=== PATIENT | male | born 1955 | race Caucasian/White ===

== ENCOUNTER 2019-10-19 12:38 | Emergency (ER) | payer MEDICARE, BC ==
[2019-10-19 13:40] VITALS: BP 168/104; PULSE 73
[2019-10-19] MEDS ORDERED: Sodium Chloride 0.9% 10 ML Syringe FLUSH PRN (14:21)
[2019-10-19] MEDS ORDERED: methylPREDNISolone Sodium Succinate 125 MG/2 ML SDV IVPUSH ONE (14:22)
[2019-10-19] MEDS ORDERED: Albuterol/Ipratropium 3.0-0.5 MG/3 ML Neb Soln NEB ONE (14:23)
--- NOTE | 2019-10-19 14:26 | EDM.PDOC ---
ED HPI GENERAL MEDICAL PROBLEM - General Chief Complaint: Respiratory Problem Stated Complaint: SOB,COUGH Time Seen by Provider: 10/19/19 14:24 Source of Information: Reports: Patient History Limitations: Reports: No Limitations - History of Present Illness INITIAL COMMENTS - FREE TEXT/NARRATIVE: pt arrived very tight and almost continuously coughing. He was seen at the clinic and he was placed on predisone and zithromax. He got some better and now he is very tight again. Onset: Gradual Duration: Day(s): Location: Reports: Chest, Generalized Associated Symptoms: Reports: Cough, Shortness of Breath - Related Data Allergies Allergy/AdvReac Type Severity Reaction Status Date / Time No Known Allergies Allergy Verified 10/19/19 13:30 Home Meds: Home Meds Multivitamin [Multivitamins] 1 cap PO BID 09/09/13 [History] hydroCHLOROthiazide [Hydrochlorothiazide] 12.5 mg PO DAILY 09/09/13 [History] Albuterol [Proair HFA] 2 puff INH Q6H PRN 07/08/16 [History] Metoprolol Tartrate 1 tab PO BID 07/08/16 [History] Albuterol Sulfate 1 inh INH Q4H PRN 08/22/16 [History] Budesonide/Formoterol [Symbicort 160-4.5 MCG] 2 puff PO BID 10/19/19 [History] Past Medical History HEENT History: Reports: Impaired Vision Cardiovascular History: Reports: Hypertension Respiratory History: Reports: Asthma Gastrointestinal History: Reports: GERD Neurological History: Reports: Concussion Psychiatric History: Reports: Depression - Infectious Disease History Infectious Disease History: Reports: C-Difficile Other Infectious Disease History: unable to obtain - Past Surgical History Male Surgical History: Reports: Vasectomy Social & Family History - Tobacco Use Smoking Status *Q: Never Smoker - Caffeine Use Caffeine Use: Reports: Coffee - Recreational Drug Use Recreational Drug Use: No - Living Situation & Occupation Living situation: Reports: , with Spouse Occupation: Employed ED ROS GENERAL - Review of Systems Review Of Systems: See Below Constitutional: Reports: Weakness HEENT: Reports: No Symptoms Respiratory: Reports: Shortness of Breath, Wheezing, Cough Cardiovascular: Reports: No Symptoms Endocrine: Reports: No Symptoms GI/Abdominal: Reports: No Symptoms : Reports: No Symptoms Musculoskeletal: Reports: No Symptoms Skin: Reports: No Symptoms ED EXAM, GENERAL - Physical Exam Exam: See Below Free Text/Narrative:: pt arrived with a history of wheezing and increased sob. He wonders about allergies, He does have colored sputum. Exam Limited By: No Limitations General Appearance: Alert, Anxious, Moderate Distress Eye Exam: Right Eye: Vision Changes Ears: Normal TMs Nose: Normal Inspection Throat/Mouth: Normal Inspection Head: Atraumatic Neck: Normal Inspection Respiratory/Chest: Decreased Breath Sounds, Wheezing, Other ( frequent cough. ) Cardiovascular: Regular Rate, Rhythm GI/Abdominal: Soft, Non-Tender (Male) Exam: Deferred Rectal (Males) Exam: Deferred Back Exam: Normal Inspection Extremities: Normal Inspection Neurological: Alert, Oriented, Normal Cognition Psychiatric: Normal Affect Course - Vital Signs Last Recorded V/S: Last Vital Signs Temp 35.7 C L 10/19/19 13:59 Pulse 73 10/19/19 13:59 Resp 14 10/19/19 13:59 BP 168/104 H 10/19/19 13:59 Pulse Ox 94 L 10/19/19 13:59 - Orders/Labs/Meds Orders: Active Orders 24 hr Category Date Time Status RT Aerosol Therapy [RC] ASDIRECTED Care 10/19/19 14:23 Active Chest 2V [CR] Stat Exams 10/19/19 14:23 Taken Sodium Chloride 0.9% [Saline Flush] Med 10/19/19 14:21 Active 10 ml FLUSH ASDIRECTED PRN Saline Lock Insert [OM.PC] Routine Oth 10/19/19 14:21 Ordered Medication Orders Sodium Chloride (Saline Flush) 10 ml FLUSH ASDIRECTED PRN PRN Reason: Keep Vein Open Last Admin: 10/19/19 14:32 Dose: 10 ml Labs: Laboratory Tests 10/19/19 10/19/19 Range/Units 14:33 14:33 WBC 8.2 (4.5-11.0) K/uL RBC 5.33 (4.30-5.90) M/uL Hgb 16.5 H (12.0-15.0) g/dL Hct 48.1 (40.0-54.0) % MCV 90 (80-98) fL MCH 31 (27-31) pg MCHC 34 (32-36) % Plt Count 224 (150-400) K/uL Neut % (Auto) 56 (36-66) % Lymph % (Auto) 30 (24-44) % [place] % (Auto) 10 H (2-6) % Eos % (Auto) 3 (2-4) % Baso % (Auto) 1 (0-1) % Sodium 145 (140-148) mmol/L Potassium 4.1 (3.6-5.2) mmol/L Chloride 107 (100-108) mmol/L Carbon Dioxide 26 (21-32) mmol/L Anion Gap 11.6 (5.0-14.0) mmol/L BUN 19 H (7-18) mg/dL Creatinine 1.2 (0.8-1.3) mg/dL Est Cr Clr Drug Dosing 65.36 mL/min Estimated GFR (MDRD) > 60 (>60) Glucose 96 (74-106) mg/dL Calcium 8.7 (8.5-10.1) mg/dL Total Bilirubin 0.5 (0.2-1.0) mg/dL AST 28 (15-37) U/L ALT 46 (12-78) U/L Alkaline Phosphatase 68 (46-116) U/L Total Protein 7.5 (6.4-8.2) g/dL Albumin 3.9 (3.4-5.0) g/dL Globulin 3.6 H (2.3-3.5) g/dL Albumin/Globulin Ratio 1.1 L (1.2-2.2) Meds: Medications Generic Name Dose Route Start Last Admin Trade Name José Luis PRN Reason Stop Dose Admin Sodium Chloride 10 ml 10/19/19 14:21 10/19/19 14:32 Saline Flush FLUSH 10 ml ASDIRECTED PRN Administration Keep Vein Open Discontinued Medications Generic Name Dose Route Start Last Admin Trade Name Freq PRN Reason Stop Dose Admin Albuterol/Ipratropium 3 ml 10/19/19 14:23 10/19/19 14:32 Duoneb 3.0-0.5 Mg/3 Ml NEB 10/19/19 14:24 3 ml ONETIME ONE Administration Methylprednisolone Sodium Succinate 125 mg 10/19/19 14:22 10/19/19 14:31 Solu-Medrol IVPUSH 10/19/19 14:23 125 mg ONETIME ONE Administration - Re-Assessments/Exams Free Text/Narrative Re-Assessment/Exam: 10/19/19 15:24 wbc is not elevated, chest xray was unchanged. other labs looked normal. j Departure - Departure Time of Disposition: 15:17 Disposition: Home, Self-Care 01 Condition: Fair Clinical Impression: Bronchitis, Bronchospasm - Discharge Information Referrals: Demian Perez MD [Primary Care Provider] - Forms: ED Department Discharge Care Plan Goals: increase nebs to tid, zithromax 250 2 tabs now and 1 tab daily for 6day. predisone 10 mg 2 tabs daily starting tomorrow for 3 days then 1 tab daily, keep appt with Dr Clark for allergy testing. . Sepsis Event Note - Evaluation Sepsis Screening Result: No Definite Risk - Focused Exam Vital Signs: Vital Signs Temp Pulse Resp BP Pulse Ox 10/19/19 13:59 35.7 C L 73 14 168/104 H 94 L 10/19/19 13:40 35.7 C L 73 14 168/104 H 94 L Date Exam was Performed: 10/19/19 Time Exam was Performed: 15:22 - My Orders Last 24 Hours: My Active Orders 10/19/19 14:21 Sodium Chloride 0.9% [Saline Flush] 10 ml FLUSH ASDIRECTED PRN Saline Lock Insert [OM.PC] Routine 10/19/19 14:23 RT Aerosol Therapy [RC] ASDIRECTED Chest 2V [CR] Stat - Assessment/Plan Last 24 Hours: My Active Orders 10/19/19 14:21 Sodium Chloride 0.9% [Saline Flush] 10 ml FLUSH ASDIRECTED PRN Saline Lock Insert [OM.PC] Routine 10/19/19 14:23 RT Aerosol Therapy [RC] ASDIRECTED Chest 2V [CR] Stat
--- NOTE | 2019-10-21 09:03 | CR ---
CHEST: 2 view CLINICAL HISTORY:SOB COMPARISON:CT 2015 FINDINGS: The heart size, pulmonary vascular and hilar structures are normal. No infiltrate effusion or pneumothorax is seen. IMPRESSION: No acute cardiopulmonary process.
== END 2019-10-19 15:37 | disposition home or self-care (01) ==
LOC: JP.ED 12:38
DX: J45.909 Unspecified asthma, uncomplicated (principal); I10 Essential (primary) hypertension; Z79.51 Long term (current) use of inhaled steroids; Z79.899 Other long term (current) drug therapy
CPT/HCPCS: 36415; 71046; 80053; 85025; 94640; 96374; 99285; J2930; J7620-GY

== ENCOUNTER 2020-07-22 13:28 | Emergency (ER) | payer MEDICARE, BC ==
--- NOTE | 2020-07-22 15:50 | EDM.PDOC ---
ED HPI GENERAL MEDICAL PROBLEM - General Chief Complaint: Respiratory Problem Stated Complaint: COUGH, SOB Time Seen by Provider: 07/22/20 15:35 Source of Information: Reports: Patient, RN Notes Reviewed History Limitations: Reports: No Limitations - History of Present Illness INITIAL COMMENTS - FREE TEXT/NARRATIVE: 65-year-old gentleman presents emergency department today with complaint of cough, he has produced some whitish sputum no fevers he has felt feverish and on and off not really short of breath no nausea or vomiting he has been ill for 1 week's time Generalized Pain Score (Numeric/FACES): 7 - Related Data Allergies Allergy/AdvReac Type Severity Reaction Status Date / Time No Known Allergies Allergy Verified 10/19/19 13:30 Home Meds: Home Meds Multivitamin [Multivitamins] 1 cap PO BID 09/09/13 [History] hydroCHLOROthiazide [Hydrochlorothiazide] 12.5 mg PO DAILY 09/09/13 [History] Albuterol [Proair HFA] 2 puff INH Q6H PRN 07/08/16 [History] Metoprolol Tartrate 1 tab PO BID 07/08/16 [History] Albuterol Sulfate 1 inh INH Q4H PRN 08/22/16 [History] Budesonide/Formoterol [Symbicort 160-4.5 MCG] 2 puff PO BID 10/19/19 [History] Codeine/guaiFENesin [guaiFENesin-Codeine Syrup] 10 ml PO TID PRN #180 cup 07/22/20 [Rx] Past Medical History HEENT History: Reports: Impaired Vision Cardiovascular History: Reports: Hypertension Respiratory History: Reports: Asthma Gastrointestinal History: Reports: GERD Neurological History: Reports: Concussion Psychiatric History: Reports: Depression - Infectious Disease History Infectious Disease History: Reports: C-Difficile Other Infectious Disease History: unable to obtain - Past Surgical History HEENT Surgical History: Reports: Adenoidectomy, Tonsillectomy Male Surgical History: Reports: Vasectomy Social & Family History - Tobacco Use Tobacco Use Status *Q: Never Tobacco User - Caffeine Use Caffeine Use: Reports: None - Recreational Drug Use Recreational Drug Use: No - Living Situation & Occupation Living situation: Reports: , with Spouse Occupation: Employed ED ROS GENERAL - Review of Systems Review Of Systems: See Below Constitutional: Reports: Fever (Feverish) HEENT: Reports: No Symptoms Respiratory: Reports: Cough, Sputum. Denies: Shortness of Breath Cardiovascular: Reports: No Symptoms GI/Abdominal: Reports: No Symptoms ED EXAM, GENERAL - Physical Exam Exam: See Below Exam Limited By: No Limitations General Appearance: Alert, WD/WN, No Apparent Distress Respiratory/Chest: No Respiratory Distress, Lungs Clear, Normal Breath Sounds, No Accessory Muscle Use, Chest Non-Tender Cardiovascular: Regular Rate, Rhythm, No Murmur Course - Vital Signs Last Recorded V/S: Last Vital Signs Temp 98.8 F 07/22/20 15:06 Pulse 92 07/22/20 16:38 Resp 20 07/22/20 15:06 BP 142/95 H 07/22/20 16:38 Pulse Ox 94 L 07/22/20 16:38 - Orders/Labs/Meds Labs: Laboratory Tests 07/22/20 Range/Units 16:16 SARS CoV-2 RNA Rapid SHAUN Positive H Meds: Medications Discontinued Medications Generic Name Dose Route Start Last Admin Trade Name Freq PRN Reason Stop Dose Admin Guaifenesin/Codeine Phosphate 10 ml 07/22/20 16:43 07/22/20 16:47 Robitussin Ac PO 07/22/20 16:44 10 ml ONETIME ONE Administration Departure - Departure Time of Disposition: 17:10 Disposition: Home, Self-Care 01 Condition: Fair Clinical Impression: COVID-19 - Discharge Information Prescriptions: Codeine/guaiFENesin [guaiFENesin-Codeine Syrup] 10 ml PO TID PRN #180 cup PRN Reason: Cough Instructions: COVID-19 Frequently Asked Questions, COVID-19, COVID-19: How to Protect Yourself and Others - CDC Referrals: PCP,None [Primary Care Provider] - Forms: ED Department Discharge Additional Instructions: Continue to use the Robitussin-AC as needed help suppress the cough, please followup with your primary care provider in 10-14 days if not better, please call return to the emergency department with worsening of symptoms. Sepsis Event Note (ED) - Evaluation Sepsis Screening Result: No Definite Risk - Focused Exam Vital Signs: Vital Signs Temp Pulse Resp BP Pulse Ox 07/22/20 16:38 92 142/95 H 94 L 07/22/20 15:06 98.8 F 98 20 150/99 H 95 - Assessment/Plan Plan: Assessment Acuity = acute Site and laterality = viral syndrome Etiology = COVID-19 Manifestations = cough Location of injury = Home Lab values = positive for COVID-19 Plan Symptomatic care at this time he is not hypoxic prescription written for Robitussin-AC 10 mL p.o. 3 times daily as needed 180 mL bottle follow-up primary care 10 to 15 days if not better This note was dictated using [employer] voice recognition software please call with any questions on syntax or grammar.
[2020-07-22 16:38] VITALS: BP 142/95; PULSE 92
[2020-07-22] MEDS ORDERED: Codeine/guaiFENesin 100mg-10 MG/5 ML Syrup 10 ML Cup PO ONE (16:43)
== END 2020-07-22 17:31 | disposition home or self-care (01) ==
LOC: JP.ED 13:28
DX: U07.1 COVID-19 (principal); I10 Essential (primary) hypertension; J45.909 Unspecified asthma, uncomplicated; Z90.49 Acquired absence of other specified parts of digestive tract; Z79.899 Other long term (current) drug therapy
CPT/HCPCS: 99283; A9270; U0002

== ENCOUNTER 2023-02-20 16:05 | Emergency (ER) | payer MEDICARE, BC ==
[2023-02-20] MEDS ORDERED: Aspirin 81 MG Tab.Chew PO ONE (16:35)
[2023-02-20] MEDS ORDERED: Nitroglycerin 0.4 MG Tab.SL SL ONE (16:35)
[2023-02-20] MEDS ORDERED: Sodium Chloride 0.9% 10 ML Syringe FLUSH PRN (16:36)
[2023-02-20 16:52] LABS: BASOPHILS ABSOLUTE AUTO 0.05 K/uL (0.00-0.10); BASOPHILS PERCENT AUTO 0.6 % (0.1-1.3); EOSINOPHILS ABSOLUTE AUTO 0.18 K/uL (0.00-0.40); EOSINOPHILS PERCENT AUTO 2.2 % (0.0-5.4); HEMATOCRIT 44.6 % (38.4-49.7); HEMOGLOBIN 16.1 g/dL (12.9-16.9); IMMATURE GRAN ABSOLUTE AUTO 0.04 K/uL (0.00-0.23); IMMATURE GRAN PERCENT AUTO 0.5 % (0.0-0.7); LYMPHOCYTES ABSOLUTE AUTO 2.24 K/uL (0.8-3.3); LYMPHOCYTES PERCENT AUTO 27.6 % (11.4-47.7); MEAN CORPUSCULAR HEMOGLOBIN 31.7 pg (31.6-35.5); MEAN CORPUSCULAR HGB CONC 36.1 g/dL (31.6-35.5); MEAN CORPUSCULAR VOLUME 87.8 fL (81.4-99.0); MONOCYTES ABSOLUTE AUTO 0.87 K/uL (0.20-0.90); MONOCYTES PERCENT AUTO 10.7 % (3.3-12.6); NEUTROPHILS ABSOLUTE AUTO 4.74 K/uL (1.0-7.6); NEUTROPHILS PERCENT AUTO 58.4 % (40.0-78.1); PLATELET COUNT,PLT 210 K/uL (130-375); RED BLOOD CELL COUNT 5.08 M/uL (4.14-5.76); WHITE BLOOD CELL COUNT,WBC 8.1 K/uL (3.2-11.0)
[2023-02-20] MEDS: Sodium Chloride 0.9% 10 ML Syringe FLUSH PRN (17:09)
[2023-02-20 17:15] LABS: CALCIUM 8.8 mg/dL (8.5-10.1); EST CRCL DRUG DOSING (CG) 75.3 mL/min; POTASSIUM,K 3.4 mmol/L (3.6-5.2); PROTHROMBIN TIME 10.5 sec (9.2-10.6); PTT,PARTIAL THROMBOPLSTIN TIME 22.7 sec (21.8-27.3); TROPONIN I HIGH SENSITIVITY 20.6 pg/mL (<=60.3)
[2023-02-20 17:18] LABS: ANION GAP 12.4 mmol/L (5.0-14.0)
[2023-02-20] MEDS ORDERED: Metoprolol Tartrate 25 MG Tab PO SCH (21:15)
[2023-02-21] MEDS: Sodium Chloride 0.9% 10 ML Syringe FLUSH PRN (02:04)
[2023-02-21 06:39] VITALS: PULSE 67
[2023-02-21 06:41] VITALS: BP 152/88
== END 2023-02-21 07:20 | disposition home or self-care (01) ==
LOC: JP.ED 16:05
DX: R07.9 Chest pain, unspecified (principal); E66.9 Obesity, unspecified; E78.5 Hyperlipidemia, unspecified; I10 Essential (primary) hypertension; J45.909 Unspecified asthma, uncomplicated; K21.9 Gastro-esophageal reflux disease without esophagitis; Z79.899 Other long term (current) drug therapy; Z68.34 Body mass index [BMI] 34.0-34.9, adult
CPT/HCPCS: 36415; 80048; 84484; 85025; 85610; 85730; 93005; 99285; A9270; J3490; 78452; 78452-26; 93017; 93018; A9500